=== PATIENT | female | born 1935 | race Caucasian/White ===

== ENCOUNTER 2016-03-07 13:22 | Emergency (ER) | payer OTHER, MEDICARE ==
[~2016-03-07] VITALS: Ht 154.9 cm; Wt 74.7 kg
[~2016-03-07 13:22] MED LIST: ACIPHEX20 MG PO; ADVAIR 100/501 DISK IH; ADVAIR 250/501 DISK IH; ADVAIR 500/501 DISK IH; ALEVE220 MG PO; ASCORBIC ACID500 M3 PO; ASPIR 8181 M1 PO; ASPIRIN E.C.81 M1 PO; Advair HFA 115/21 IH; BISOPROLOL FUMAR5 M1 NG; BISOPROLOL FUMAR5 MG PO; CARAFATE1 GM PO; CELEXA20 MG PO; COLACE100 MG PO; COUMADIN PO; CYANOCOBALAM1000 MCG PO; DILAUDID2 MG PO; DYAZIDE, MA1 CAPSULE PO; Dyazide, Maxzide 37. PO; FEOSOL325 MG PO; FISH OIL 1,0001 EAC8 PO; FISH OIL SOFTG1 EACH PO; Flovent 110 mcg IH; HYDROCODON-ACE1 EAC7 PO; HYDROMORPHONE HC2 MG PO; K-DUR10 ME1 PO; K-DUR10 MEQ PO; LATANOPROST2.5 ML BOTH EYES; LEVAQUIN500 MG PO; LEVOTHYROXINE88 MCG PO; LO-DOSE ASPIRIN81 M1 PO; Levothroid,Synthroid PO; MAXZIDE 37.5 M1 EACH PO; NASONEX17 GM BOTH NARES; NITROSTAT0.4 MG SL; OMEPRAZOLE40 M1 PO; OXYBUTYNIN CHLOR5 MG PO; PRAVACHOL40 MG PO; PRAVASTATIN SOD20 MG PO; PRAVASTATIN SOD40 MG PO; PREDNISONE50 MG PO; PRILOSEC40 MG PO; PROAIR HFA8.5 GM IH; PROVENTIL,2.5 MG/3 M IH; Prilosec PO; RANITIDINE HCL300 M1 PO; REQUIP1 MG PO; SENOKOT S,PE1 TABLET PO; SPIRIVA1 INHALATI IH; ST. JOSEPH ASPI81 MG PO; STOOL SOFTENER100 MG PO; SUCRALFATE1 GM PO; SYNTHROID100 MCG PO; TRAZODONE HCL50 MG PO; TRIAMTERENE-HC1 EAC1 PO; TRIAMTERENE-HC1 EACH PO; TUSSIONEX PENN473 ML PO; TYLENOL EXTRA500 MG PO; Tylenol Regular Stre PO; VITAMIN D1000 UNIT PO; VITAMIN D31000 UNIT PO; VITAMIN E400 UNIT PO; VOLTAREN 1% GE100 GM TP; Vicodin,Lortab 5/500 PO; ZEBETA5 MG PO; Zebeta PO
[2016-03-07 14:28] LABS: MCH 30.9 PG (29.0-34.0); MCHC 33.6 G/DL (30.0-36.0); MCV 92.1 FL (83-99); MEAN PLAT.VOLUME 10.6 uM^3 (9.5-12.4); PLATELET COUNT 171 K/uL (156-360); RBC DIS.WIDTH-CV 12.5 % (11.8-14.6); RBC DIS.WIDTH-SD 40.9 % (39-53); RED BLOOD COUNT 4.56 M/uL (3.80-5.20); WHITE BLOOD COUNT 10.2 K/uL (4.1-10.2)
[2016-03-07 14:36] LABS: CHLORIDE 104 mEq/L (99-109); POTASSIUM 3.8 mEq/L (3.7-5.4); SODIUM 141 mEq/L (136-147)
[2016-03-07 14:38] LABS: GLUCOSE 106 mg/dL (70-99)
[2016-03-07 14:39] LABS: ANION GAP 9 MEQ/L (2-14)
[2016-03-07 14:40] LABS: TOTAL BILIRUBIN 1.2 mg/dL (0.0-1.0)
[2016-03-07 14:42] LABS: ALKALINE PHOSPHATASE 62 IU/L (3-129); GFR ESTIMATE (CALCULATED) 51 mL/min/
[2016-03-07 14:43] LABS: UREA NITROGEN (BUN) 26 mg/dL (9-23)
[2016-03-07 14:45] LABS: LIPASE 9 U/L (1.0-51.0)
[2016-03-07 16:21] LABS: ADD MIUA? YES; BILIRUBIN NEGATIVE; BLOOD NEGATIVE; COLOR YELLOW ((YELLOW)); GLUCOSE (STRIP) NEGATIVE; KETONES NEGATIVE; LEUKOCYTES TRACE; NITRITE NEGATIVE; PROTEIN (STRIP) NEGATIVE; SPECIFIC GRAVITY 1.022 (1.000-1.030); UROBILINOGEN 0.2 MG/DL (0.2-1.0)
[2016-03-07 16:46] LABS: BACTERIA RARE; CASTS NONE SEEN /LPF; CRYSTALS PRESENT; EPITHELIAL CELLS RARE; MUCUS NONE SEEN; OTHER RENAL CELLS; RED BLOOD CELLS 0-5 /HPF (0-5); UCUL ADDED? NO; WHITE BLOOD CELLS 0-5 /HPF (0-5)
[2016-03-07 16:57] VITALS: BP 109/51
== END 2016-03-07 17:30 | disposition home or self-care (01) ==
LOC: EME 13:22
DX: R10.31 Right lower quadrant pain (principal); J43.9 Emphysema, unspecified; J44.9 Chronic obstructive pulmonary disease, unspecified; Z79.82 Long term (current) use of aspirin; Z88.6 Allergy status to analgesic agent; Z88.8 Allergy status to other drugs, medicaments and biological substances
CPT/HCPCS: 74177; 80053; 81003; 83690; 85027; 99281; 99285; J2405; J3010; J7030

== ENCOUNTER 2016-04-24 05:42 | Observation (INO) | payer OTHER, MEDICARE ==
[~2016-04-24] VITALS: Ht 154.9 cm; Wt 75.7 kg
[2016-04-24 06:14] LABS: POINT-OF-CARE METER ID UU14100415
[2016-04-24 07:02] LABS: HEMATOCRIT 37.6 % (36.0-46.0); MCH 30.3 PG (29.0-34.0); MCHC 32.7 G/DL (30.0-36.0); MCV 92.6 FL (83-99); MEAN PLAT.VOLUME 10.1 uM^3 (9.5-12.4); PLATELET COUNT 185 K/uL (156-360); RBC DIS.WIDTH-CV 12.4 % (11.8-14.6); RBC DIS.WIDTH-SD 40.9 % (39-53); RED BLOOD COUNT 4.06 M/uL (3.80-5.20); WHITE BLOOD COUNT 7.3 K/uL (4.1-10.2)
[2016-04-24 07:42] LABS: ANION GAP 9 MEQ/L (2-14); CHLORIDE 108 MEQ/L (99-109); POTASSIUM 3.8 MEQ/L (3.7-5.4); SAMPLE HEMOLYSIS CHECK 0; SAMPLE ICTERIC CHECK 0; SAMPLE LIPEMIA CHECK 0; SODIUM 145 MEQ/L (136-147)
[2016-04-24 07:48] LABS: GFR ESTIMATE (CALCULATED) 57 mL/min/; GLUCOSE 92 mg/dL (70-99); UREA NITROGEN (BUN) 20 mg/dL (9-23)
[2016-04-24 07:51] LABS: TROP-I INTERPRETATION NEGATIVE; TROPONIN-I 0.05 ng/mL (0.0-0.30)
[2016-04-24 08:47] LABS: ADD MIUA? NO; BILIRUBIN NEGATIVE; BLOOD NEGATIVE; COLOR YELLOW ((YELLOW)); GLUCOSE (STRIP) NEGATIVE; KETONES NEGATIVE; LEUKOCYTES NEGATIVE; NITRITE NEGATIVE; PROTEIN (STRIP) NEGATIVE; SPECIFIC GRAVITY 1.017 (1.000-1.030); UCUL ADDED? NO; UROBILINOGEN 0.2 MG/DL (0.2-1.0)
[2016-04-24] MEDS ORDERED: ESOMEPRAZOLE MA40 MG PO (09:13)
[2016-04-24] MEDS ORDERED: LATANOPROST2.5 ML BOTH EYES (09:16)
[2016-04-24] MEDS ORDERED: SUCRALFATE1 GM PO (09:16)
[2016-04-24 10:25] VITALS: BP 199/84
[2016-04-24 14:15] LABS: TROP-I INTERPRETATION NEGATIVE; TROPONIN-I 0.03 ng/mL (0.0-0.30)
[2016-04-24 14:37] LABS: Estimated Average Glucose 114 mg/dL (70-123); HEMOGLOBIN A1c (GLYCOHEMOGLOB) 5.6 % HGB (Below 5.7)
[2016-04-24 15:53] LABS: HDL CHOLESTEROL 54 MG/DL (Desirable>=50); LDL CHOLESTEROL 91 mg/dL (Desirable<100); NON-HDL CHOLESTEROL 109 mg/dL (Desirable<160); TOTAL CHOLESTEROL 163 mg/dL (Desirable<200); TRIGLYCERIDES 91 MG/DL (Normal: <150)
[2016-04-24 16:00] VITALS: BP 181/85
[2016-04-24 20:00] VITALS: BP 137/63
[2016-04-24 20:33] LABS: TROP-I INTERPRETATION NEGATIVE; TROPONIN-I 0.04 ng/mL (0.0-0.30)
[2016-04-25 00:30] VITALS: BP 171/79
[2016-04-25 08:43] VITALS: BP 163/74
[2016-04-25] MEDS ORDERED: ADVAIR 250/501 DISK IH (10:31)
[2016-04-25] MEDS ORDERED: PRAVASTATIN SOD80 MG PO (10:31)
== END 2016-04-25 11:52 | disposition home or self-care (01) ==
LOC: EME 05:42 → EDOF 08:56 → 5WEST 10:16
PROVIDERS: Internal Medicine; Physician Assistant Medical
DX: G45.9 Transient cerebral ischemic attack, unspecified (principal); R25.2 Cramp and spasm; R00.1 Bradycardia, unspecified; R42 Dizziness and giddiness; R47.81 Slurred speech; J44.9 Chronic obstructive pulmonary disease, unspecified; I10 Essential (primary) hypertension; G89.29 Other chronic pain; G43.909 Migraine, unspecified, not intractable, without status migrainosus; J45.909 Unspecified asthma, uncomplicated; K21.9 Gastro-esophageal reflux disease without esophagitis; F32.9 Major depressive disorder, single episode, unspecified; Z86.73 Personal history of transient ischemic attack (TIA), and cerebral infarction without residual deficits; E78.5 Hyperlipidemia, unspecified
CPT/HCPCS: 70450; 71020; 80048; 80061; 81003; 82948; 83036; 84443; 84484; 85027; 93005; 93306; 94640; 94640 76; 99281; 99285; G0378; J1650

== ENCOUNTER 2016-05-03 04:18 | Observation (INO) | payer OTHER, MEDICARE ==
[~2016-05-03] VITALS: Ht 154.9 cm; Wt 74.3 kg
[~2016-05-03 04:18] MED LIST changes: +ESOMEPRAZOLE MA40 MG PO; +PRAVASTATIN SOD80 MG PO
[2016-05-03 05:22] LABS: CHLORIDE 107 mEq/L (99-109)
[2016-05-03 05:23] LABS: POTASSIUM 4.3 mEq/L (3.7-5.4); SODIUM 143 mEq/L (136-147)
[2016-05-03 05:25] LABS: GLUCOSE 98 mg/dL (70-99)
[2016-05-03 05:26] LABS: ANION GAP 9 MEQ/L (2-14); EOSINOPHIL (%) 0.1 % (0-5); HEMATOCRIT 41.4 % (36.0-46.0); IMMATURE GRANULOCYTE (%) 0.2 % (0.0-0.7); IMMATURE GRANULOCYTE COUNT 0.2 K/uL; LYMPHOCYTE COUNT 1.9 K/uL (1.0-2.8); MCH 31.1 PG (29.0-34.0); MCHC 33.6 G/DL (30.0-36.0); MCV 92.6 FL (83-99); MONOCYTE (%) 9.2 % (3-12); MONOCYTE COUNT 0.8 K/uL (0-0.8); NEUTROPHIL (%) 69.4 % (45-76); NEUTROPHIL COUNT 6.2 K/uL (1.8-6.4); PLATELET COUNT 209 K/uL (156-360); RBC DIS.WIDTH-CV 12.4 % (11.8-14.6); RBC DIS.WIDTH-SD 41.2 % (39-53); RED BLOOD COUNT 4.47 M/uL (3.80-5.20)
[2016-05-03 05:27] LABS: TOTAL BILIRUBIN 0.6 mg/dL (0.0-1.0)
[2016-05-03 05:28] LABS: ALKALINE PHOSPHATASE 85 IU/L (3-129)
[2016-05-03 05:29] LABS: GFR ESTIMATE (CALCULATED) 51 mL/min/
[2016-05-03 05:30] LABS: DIRECT BILIRUBIN 0.2 mg/dL (0.0-0.3); PTT 25.4 (25-32); UREA NITROGEN (BUN) 25 mg/dL (9-23)
[2016-05-03 05:32] LABS: LIPASE 14 U/L (1.0-51.0); TROP-I INTERPRETATION NEGATIVE; TROPONIN-I 0.04 ng/mL (0.0-0.30)
[2016-05-03 05:48] LABS: ADD MIUA? NO; BILIRUBIN NEGATIVE; BLOOD NEGATIVE; COLOR STRAW ((YELLOW)); GLUCOSE (STRIP) NEGATIVE; KETONES NEGATIVE; LEUKOCYTES NEGATIVE; NITRITE NEGATIVE; PROTEIN (STRIP) NEGATIVE; SPECIFIC GRAVITY 1.012 (1.000-1.030); UCUL ADDED? NO; UROBILINOGEN 0.2 MG/DL (0.2-1.0)
[2016-05-03 06:01] LABS: HDL CHOLESTEROL 64 MG/DL (Desirable>=50); LDL CHOLESTEROL 91 mg/dL (Desirable<100); NON-HDL CHOLESTEROL 112 mg/dL (Desirable<160); TOTAL CHOLESTEROL 176 mg/dL (Desirable<200); TRIGLYCERIDES 105 MG/DL (Normal: <150)
[2016-05-03 09:33] VITALS: BP 173/71
[2016-05-03 11:06] LABS: Estimated Average Glucose 117 mg/dL (70-123); HEMOGLOBIN A1c (GLYCOHEMOGLOB) 5.7 % HGB (Below 5.7)
[2016-05-03 11:28] VITALS: BP 119/58
[2016-05-03 13:13] LABS: TROP-I INTERPRETATION NEGATIVE; TROPONIN-I 0.02 ng/mL (0.0-0.30)
[2016-05-03 15:45] VITALS: BP 165/70
[2016-05-03] MEDS ORDERED: ASPIR-LOW81 MG PO (15:45)
[2016-05-03] MEDS ORDERED: LISINOPRIL-HCT1 EACH PO (16:08)
== END 2016-05-03 16:27 | disposition home or self-care (01) ==
LOC: EME 04:18 → EDOF 07:36 → 5WEST 09:15
PROVIDERS: Emergency Medicine; Internal Medicine
DX: G45.9 Transient cerebral ischemic attack, unspecified (principal); I16.0 Hypertensive urgency; I10 Essential (primary) hypertension; Z86.73 Personal history of transient ischemic attack (TIA), and cerebral infarction without residual deficits; J44.9 Chronic obstructive pulmonary disease, unspecified; G43.909 Migraine, unspecified, not intractable, without status migrainosus; K21.9 Gastro-esophageal reflux disease without esophagitis; G89.29 Other chronic pain; Z86.718 Personal history of other venous thrombosis and embolism; F32.9 Major depressive disorder, single episode, unspecified; M19.90 Unspecified osteoarthritis, unspecified site
CPT/HCPCS: 70450; 70551; 71020; 80048; 80061; 80076; 81003; 83036; 83690; 84484; 85025; 85610; 85730; 93005; 99281; 99285; G0378; J1650; J2060

== ENCOUNTER 2016-09-19 11:40 | Inpatient (IN) | payer OTHER, MEDICARE ==
[~2016-09-19] VITALS: Ht 154.9 cm; Wt 73.9 kg
[~2016-09-19 11:40] MED LIST changes: +ASPIR-LOW81 MG PO; +LISINOPRIL-HCT1 EACH PO
[2016-09-19 12:20] LABS: POINT-OF-CARE METER ID UU14100415
[2016-09-19 13:25] LABS: INTER. NORMALIZED RATIO 0.9; PROTHROMBIN TIME 10.3 SEC (10.2-12.9)
[2016-09-19 13:27] LABS: PTT 29.7 SEC (25-37)
[2016-09-19 13:37] LABS: CHLORIDE 106 mEq/L (99-109); POTASSIUM 3.6 mEq/L (3.7-5.4); SODIUM 144 mEq/L (136-147)
[2016-09-19 13:39] LABS: GLUCOSE 129 mg/dL (70-99)
[2016-09-19 13:40] LABS: ANION GAP 12 MEQ/L (2-14); TROP-I INTERPRETATION INDETERMINATE; TROPONIN-I 0.49 ng/mL (0.0-0.30)
[2016-09-19 13:43] LABS: GFR ESTIMATE (CALCULATED) 56 mL/min/
[2016-09-19 13:44] LABS: UREA NITROGEN (BUN) 21 mg/dL (9-23)
[2016-09-19 14:57] LABS: EOSINOPHIL (%) 0.6 % (0-5); EOSINOPHIL COUNT 0.1 K/uL (0-0.3); HEMATOCRIT 37.9 % (36.0-46.0); IMMATURE GRANULOCYTE COUNT 0.1 K/uL; INSTRUMENT ABS NEUTROPHIL CT 11.1 K/uL; LYMPHOCYTE COUNT 0.9 K/uL (1.0-2.8); MCH 30.3 PG (29.0-34.0); MCHC 32.5 G/DL (30.0-36.0); MCV 93.3 FL (83-99); MEAN PLAT.VOLUME 10.3 uM^3 (9.5-12.4); MONOCYTE (%) 6.4 % (3-12); MONOCYTE COUNT 0.8 K/uL (0-0.8); NEUTROPHIL (%) 84.8 % (45-76); NEUTROPHIL COUNT 11.1 K/uL (1.8-6.4); PLATELET COUNT 173 K/uL (156-360); RBC DIS.WIDTH-CV 12.6 % (11.8-14.6); RBC DIS.WIDTH-SD 43.4 % (39-53); RED BLOOD COUNT 4.06 M/uL (3.80-5.20); WHITE BLOOD COUNT 13.1 K/uL (4.1-10.2)
[2016-09-19 16:24] LABS: ADD MIUA? YES; BILIRUBIN NEGATIVE; BLOOD NEGATIVE; COLOR YELLOW ((YELLOW)); GLUCOSE (STRIP) NEGATIVE; KETONES NEGATIVE; LEUKOCYTES NEGATIVE; NITRITE NEGATIVE; PROTEIN (STRIP) NEGATIVE; SPECIFIC GRAVITY 1.014 (1.000-1.030); UROBILINOGEN 0.2 MG/DL (0.2-1.0)
[2016-09-19 17:05] LABS: EPITHELIAL CELLS 1+ /HPF; RED BLOOD CELLS 0-5 /HPF (0-5); WHITE BLOOD CELLS 0-5 /HPF (0-5)
[2016-09-19 17:06] LABS: BACTERIA RARE /HPF; MUCUS NONE SEEN /LPF
[2016-09-19 18:03] VITALS: BP 131/74
[2016-09-19 18:48] LABS: INTER. NORMALIZED RATIO 0.9; PROTHROMBIN TIME 9.6 SEC (10.2-12.9)
[2016-09-19 18:50] LABS: ANION GAP 12 MEQ/L (2-14); CHLORIDE 105 MEQ/L (99-109); POTASSIUM 3.8 MEQ/L (3.7-5.4); SAMPLE HEMOLYSIS CHECK 0; SAMPLE ICTERIC CHECK 0; SAMPLE LIPEMIA CHECK 0; SODIUM 142 MEQ/L (136-147)
[2016-09-19 18:51] LABS: PTT 23.2 SEC (25-37)
[2016-09-19 18:54] LABS: EOSINOPHIL (%) 0.5 % (0-5); EOSINOPHIL COUNT 0.1 K/uL (0-0.3); HEMATOCRIT 40.8 % (36.0-46.0); IMMATURE GRANULOCYTE (%) 1.1 % (0.0-0.7); IMMATURE GRANULOCYTE COUNT 0.1 K/uL; INSTRUMENT ABS NEUTROPHIL CT 10.6 K/uL; LYMPHOCYTE COUNT 1.2 K/uL (1.0-2.8); MCH 30.1 PG (29.0-34.0); MCHC 31.9 G/DL (30.0-36.0); MCV 94.4 FL (83-99); MONOCYTE (%) 8.1 % (3-12); MONOCYTE COUNT 1.1 K/uL (0-0.8); NEUTROPHIL (%) 80.8 % (45-76); NEUTROPHIL COUNT 10.6 K/uL (1.8-6.4); RBC DIS.WIDTH-CV 12.5 % (11.8-14.6); RED BLOOD COUNT 4.32 M/uL (3.80-5.20); WHITE BLOOD COUNT 13.2 K/uL (4.1-10.2)
[2016-09-19 18:56] LABS: GFR ESTIMATE (CALCULATED) 56 mL/min/; GLUCOSE 104 mg/dL (70-99); HDL CHOLESTEROL 62 MG/DL (Desirable>=50); LDL CHOLESTEROL 116 mg/dL (Desirable<100); NON-HDL CHOLESTEROL 132 mg/dL (Desirable<160); TOTAL CHOLESTEROL 194 mg/dL (Desirable<200); TRIGLYCERIDES 81 MG/DL (Normal: <150); UREA NITROGEN (BUN) 18 mg/dL (9-23)
[2016-09-19 19:12] LABS: PLAT.SUFFICIENCY DECREASED
[2016-09-19 19:13] LABS: PLATELET COUNT 118 K/uL (156-360)
[2016-09-19 20:05] VITALS: BP 189/76
[2016-09-19 20:33] VITALS: BP 158/82
[2016-09-20] VITALS: BP 152/100
[2016-09-20 01:14] LABS: TROP-I INTERPRETATION INDETERMINATE
[2016-09-20 04:05] VITALS: BP 160/77
[2016-09-20 05:24] LABS: PROTHROMBIN TIME 11.1 SEC (10.2-12.9)
[2016-09-20 05:27] LABS: PTT 33.1 SEC (25-37)
[2016-09-20 05:40] LABS: TROP-I INTERPRETATION INDETERMINATE; TROPONIN-I 0.52 ng/mL (0.0-0.30)
[2016-09-20 05:58] LABS: HEMATOCRIT 36.3 % (36.0-46.0); MCH 31.5 PG (29.0-34.0); MCHC 33.6 G/DL (30.0-36.0); MCV 93.8 FL (83-99); RBC DIS.WIDTH-CV 12.7 % (11.8-14.6); RBC DIS.WIDTH-SD 43.6 % (39-53); RED BLOOD COUNT 3.87 M/uL (3.80-5.20); WHITE BLOOD COUNT 10.2 K/uL (4.1-10.2)
[2016-09-20 06:00] LABS: MEAN PLAT.VOLUME 10.9 uM^3 (9.5-12.4); PLATELET COUNT 178 K/uL (156-360)
[2016-09-20 06:14] LABS: ANION GAP 7 MEQ/L (2-14); CHLORIDE 107 MEQ/L (99-109); GFR ESTIMATE (CALCULATED) > 59 mL/min/; GLUCOSE 88 mg/dL (70-99); POTASSIUM 4.2 MEQ/L (3.7-5.4); SAMPLE HEMOLYSIS CHECK 1; SAMPLE ICTERIC CHECK 0; SAMPLE LIPEMIA CHECK 0; SODIUM 142 MEQ/L (136-147); UREA NITROGEN (BUN) 14 mg/dL (9-23)
[2016-09-20 07:44] VITALS: BP 192/78
[2016-09-20 11:16] VITALS: BP 152/66
[2016-09-20] MEDS ORDERED: PRAVASTATIN SOD20 MG PO (14:33)
[2016-09-20] MEDS ORDERED: REQUIP2 MG PO (14:35)
[2016-09-20] MEDS ORDERED: VITAMIN E1000 UNI1 PO (14:37)
[2016-09-20] MEDS ORDERED: ARICEPT5 MG PO (14:38)
[2016-09-20] MEDS ORDERED: COLACE100 MG PO (14:38)
[2016-09-20] MEDS ORDERED: MELOXICAM15 MG PO (14:38)
[2016-09-20 15:12] VITALS: BP 156/71
[2016-09-20 18:44] VITALS: BP 128/90
[2016-09-21 05:44] VITALS: BP 188/79
[2016-09-21 07:54] LABS: Estimated Average Glucose 117 mg/dL (70-123); HEMOGLOBIN A1c (GLYCOHEMOGLOB) 5.7 % HGB (Below 5.7)
[2016-09-21 09:00] VITALS: BP 176/77
[2016-09-21 11:00] VITALS: BP 159/79
[2016-09-21 17:36] VITALS: BP 162/74
[2016-09-21 20:00] VITALS: BP 171/77
[2016-09-21 23:41] VITALS: BP 152/63
[2016-09-22 04:21] VITALS: BP 154/81
[2016-09-22 07:26] LABS: ANION GAP 8 MEQ/L (2-14); CHLORIDE 109 MEQ/L (99-109); GFR ESTIMATE (CALCULATED) > 59 mL/min/; GLUCOSE 82 mg/dL (70-99); POTASSIUM 3.6 MEQ/L (3.7-5.4); SAMPLE HEMOLYSIS CHECK 0; SAMPLE ICTERIC CHECK 0; SAMPLE LIPEMIA CHECK 0; SODIUM 144 MEQ/L (136-147); UREA NITROGEN (BUN) 14 mg/dL (9-23)
[2016-09-22] MEDS ORDERED: CLOPIDOGREL75 MG PO (07:38)
[2016-09-22] MEDS ORDERED: PRAVACHOL40 MG PO (07:39)
[2016-09-22] MEDS ORDERED: LISINOPRIL10 MG PO (07:42)
[2016-09-22 08:32] VITALS: BP 169/75
[2016-09-22 11:20] VITALS: BP 153/88
[2016-09-22] MEDS ORDERED: NEURONTIN100 MG PO (14:37)
[2016-09-22] MEDS ORDERED: LOPRESSOR50 MG PO (14:38)
[2016-09-22] MEDS ORDERED: LOVENOX40 MG/0.4 SC (14:39)
== END 2016-09-22 13:02 | DRG 65 ==
LOC: EME 11:40 → EDOF 15:51 → 5SOUTH 17:34
PROVIDERS: Emergency Medicine; Internal Medicine; Nurse Practitioner Adult Health
DX: I63.511 Cerebral infarction due to unspecified occlusion or stenosis of right middle cerebral artery (principal); R47.81 Slurred speech; R13.10 Dysphagia, unspecified; I11.0 Hypertensive heart disease with heart failure; I50.30 Unspecified diastolic (congestive) heart failure; J44.9 Chronic obstructive pulmonary disease, unspecified; I69.354 Hemiplegia and hemiparesis following cerebral infarction affecting left non-dominant side; I16.0 Hypertensive urgency; R74.8 Abnormal levels of other serum enzymes; F03.90 Unspecified dementia, unspecified severity, without behavioral disturbance, psychotic disturbance, mood disturbance, and anxiety; E78.5 Hyperlipidemia, unspecified; G62.9 Polyneuropathy, unspecified; G25.81 Restless legs syndrome; K21.9 Gastro-esophageal reflux disease without esophagitis; Z79.82 Long term (current) use of aspirin; Z85.828 Personal history of other malignant neoplasm of skin; Z82.0 Family history of epilepsy and other diseases of the nervous system
CPT/HCPCS: 70450; 70551; 71010; 80048; 80048 91; 80061; 81003; 82948; 83036; 84439; 84443; 84484; 85025; 85025 91; 85027; 85610; 85730; 92526 GN; 92610 GN; 93005; 93880; 93970; 94640; 94640 76; 97530 GP; 99281; 99285; J0360; J1650; J2270; J7030

== ENCOUNTER 2016-09-22 13:12 | Inpatient (IN) | payer OTHER, MEDICARE ==
[~2016-09-22] VITALS: Ht 154.9 cm; Wt 73.6 kg
[~2016-09-22 13:12] MED LIST changes: +ARICEPT5 MG PO; +CLOPIDOGREL75 MG PO; +LISINOPRIL10 MG PO; +MELOXICAM15 MG PO; +REQUIP2 MG PO; +VITAMIN E1000 UNI1 PO
[2016-09-22 13:25] VITALS: BP 146/67
[2016-09-22] MEDS ORDERED: NEURONTIN100 MG PO (14:37)
[2016-09-22] MEDS ORDERED: LOPRESSOR50 MG PO (14:38)
[2016-09-22] MEDS ORDERED: LOVENOX40 MG/0.4 SC (14:39)
[2016-09-22 15:45] VITALS: BP 177/74
[2016-09-23] VITALS: BP 147/69
[2016-09-23 05:36] VITALS: BP 169/72
[2016-09-23 06:34] LABS: HEMATOCRIT 37.6 % (36.0-46.0); MCH 30.8 PG (29.0-34.0); MCV 93.5 FL (83-99); MEAN PLAT.VOLUME 10.1 uM^3 (9.5-12.4); PLATELET COUNT 178 K/uL (156-360); RBC DIS.WIDTH-CV 12.7 % (11.8-14.6); RBC DIS.WIDTH-SD 43.5 % (39-53); RED BLOOD COUNT 4.02 M/uL (3.80-5.20); WHITE BLOOD COUNT 6.4 K/uL (4.1-10.2)
[2016-09-23 06:59] LABS: ALKALINE PHOSPHATASE 60 IU/L (3-129); ANION GAP 6 MEQ/L (2-14); CHLORIDE 109 MEQ/L (99-109); GFR ESTIMATE (CALCULATED) > 59 mL/min/; GLUCOSE 85 mg/dL (70-99); SAMPLE HEMOLYSIS CHECK 0; SAMPLE ICTERIC CHECK 0; SAMPLE LIPEMIA CHECK 0; SODIUM 143 MEQ/L (136-147); TOTAL BILIRUBIN 0.6 MG/DL (0.0-1.0); UREA NITROGEN (BUN) 13 mg/dL (9-23)
[2016-09-23 14:59] VITALS: BP 149/66
[2016-09-24 05:23] VITALS: BP 148/62
[2016-09-24 15:51] VITALS: BP 145/67
[2016-09-25 04:56] VITALS: BP 175/61
[2016-09-25 06:17] VITALS: BP 162/75
[2016-09-25 09:19] LABS: ADD MIUA? YES; BILIRUBIN NEGATIVE; BLOOD NEGATIVE; COLOR YELLOW ((YELLOW)); GLUCOSE (STRIP) NEGATIVE; KETONES NEGATIVE; LEUKOCYTES NEGATIVE; NITRITE NEGATIVE; PROTEIN (STRIP) NEGATIVE; SPECIFIC GRAVITY 1.013 (1.000-1.030); UROBILINOGEN 0.2 MG/DL (0.2-1.0)
[2016-09-25 09:58] LABS: BACTERIA NONE SEEN /HPF; EPITHELIAL CELLS RARE /HPF; MUCUS NONE SEEN /LPF; RED BLOOD CELLS NONE SEEN /HPF (0-5); WHITE BLOOD CELLS NONE SEEN /HPF (0-5)
[2016-09-25 16:17] VITALS: BP 149/67
[2016-09-26 04:44] VITALS: BP 132/60
[2016-09-26 07:15] VITALS: BP 154/70
[2016-09-26 15:32] VITALS: BP 121/62
[2016-09-27 05:14] VITALS: BP 133/65
[2016-09-27 06:00] LABS: HEMATOCRIT 39.3 % (36.0-46.0); MCH 31.7 PG (29.0-34.0); MCHC 33.8 G/DL (30.0-36.0); MCV 93.8 FL (83-99); MEAN PLAT.VOLUME 10.5 uM^3 (9.5-12.4); PLATELET COUNT 186 K/uL (156-360); RBC DIS.WIDTH-CV 12.9 % (11.8-14.6); RBC DIS.WIDTH-SD 43.9 % (39-53); RED BLOOD COUNT 4.19 M/uL (3.80-5.20); WHITE BLOOD COUNT 7.7 K/uL (4.1-10.2)
[2016-09-27 06:37] LABS: ALKALINE PHOSPHATASE 66 IU/L (3-129); ANION GAP 10 MEQ/L (2-14); CHLORIDE 102 MEQ/L (99-109); GFR ESTIMATE (CALCULATED) 56 mL/min/; GLUCOSE 88 mg/dL (70-99); POTASSIUM 3.5 MEQ/L (3.7-5.4); SAMPLE HEMOLYSIS CHECK 0; SAMPLE ICTERIC CHECK 0; SAMPLE LIPEMIA CHECK 0; SODIUM 139 MEQ/L (136-147); TOTAL BILIRUBIN 0.7 MG/DL (0.0-1.0); UREA NITROGEN (BUN) 20 mg/dL (9-23)
[2016-09-27 15:26] VITALS: BP 112/52
[2016-09-28 06:19] VITALS: BP 133/56
[2016-09-28] MEDS ORDERED: LOPRESSOR50 MG PO (12:44)
[2016-09-28] MEDS ORDERED: LISINOPRIL10 MG PO (12:44)
[2016-09-28] MEDS ORDERED: PRAVACHOL40 MG PO (12:44)
[2016-09-28] MEDS ORDERED: CLOPIDOGREL75 MG PO (12:44)
[2016-09-28] MEDS ORDERED: MONTELUKAST SOD10 MG PO (12:44)
== END 2016-09-28 14:56 | disposition home health service (06) | DRG 57 ==
LOC: 3WEST 13:12
PROVIDERS: Physical Medicine & Rehabilitation Pain Medicine
PROC: F07M0ZZ Range of Motion and Joint Mobility Treatment of Musculoskeletal System - Whole Body (ICD-10-PCS; principal; 2016-09-22)
DX: I69.354 Hemiplegia and hemiparesis following cerebral infarction affecting left non-dominant side (principal); I69.391 Dysphagia following cerebral infarction; E03.9 Hypothyroidism, unspecified; K21.9 Gastro-esophageal reflux disease without esophagitis; K44.9 Diaphragmatic hernia without obstruction or gangrene; M19.90 Unspecified osteoarthritis, unspecified site; E78.5 Hyperlipidemia, unspecified; G25.81 Restless legs syndrome; J45.30 Mild persistent asthma, uncomplicated; E87.6 Hypokalemia; F03.90 Unspecified dementia, unspecified severity, without behavioral disturbance, psychotic disturbance, mood disturbance, and anxiety; H40.9 Unspecified glaucoma; I11.9 Hypertensive heart disease without heart failure; R29.810 Facial weakness; I36.1 Nonrheumatic tricuspid (valve) insufficiency; I27.2 Other secondary pulmonary hypertension; I34.0 Nonrheumatic mitral (valve) insufficiency; M25.511 Pain in right shoulder; I65.23 Occlusion and stenosis of bilateral carotid arteries; Z82.3 Family history of stroke
CPT/HCPCS: 71010; 74230; 80053; 81003; 85027; 87086; 92523 GN; 92526 GN; 92610 GN; 92611 GN; 94640 76; 97532 GN; J1650

== ENCOUNTER 2016-10-04 14:30 | Emergency (ER) | payer OTHER, MEDICARE ==
[~2016-10-04] VITALS: Ht 154.9 cm; Wt 70.4 kg
[~2016-10-04 14:30] MED LIST changes: +LOPRESSOR50 MG PO; +LOVENOX40 MG/0.4 SC; +MONTELUKAST SOD10 MG PO; +NEURONTIN100 MG PO
[2016-10-04 16:10] LABS: HEMATOCRIT 40.6 % (36.0-46.0); MCH 30.9 PG (29.0-34.0); MCV 93.8 FL (83-99); MEAN PLAT.VOLUME 10.7 uM^3 (9.5-12.4); PLATELET COUNT 207 K/uL (156-360); RBC DIS.WIDTH-CV 12.4 % (11.8-14.6); RBC DIS.WIDTH-SD 42.7 % (39-53); RED BLOOD COUNT 4.33 M/uL (3.80-5.20); WHITE BLOOD COUNT 6.8 K/uL (4.1-10.2)
[2016-10-04 16:15] LABS: INTER. NORMALIZED RATIO 0.9; PROTHROMBIN TIME 9.9 SEC (10.2-12.9)
[2016-10-04 16:17] LABS: PTT 23.5 SEC (25-37)
[2016-10-04 16:17] LABS: CHLORIDE 101 mEq/L (99-109); POTASSIUM 4.8 mEq/L (3.7-5.4); SODIUM 138 mEq/L (136-147)
[2016-10-04 16:20] LABS: GLUCOSE 96 mg/dL (70-99)
[2016-10-04 16:21] LABS: ANION GAP 10 MEQ/L (2-14)
[2016-10-04 16:22] LABS: TOTAL BILIRUBIN 0.6 mg/dL (0.0-1.0)
[2016-10-04 16:23] LABS: ALKALINE PHOSPHATASE 76 IU/L (3-129); GFR ESTIMATE (CALCULATED) 51 mL/min/
[2016-10-04 16:24] LABS: UREA NITROGEN (BUN) 26 mg/dL (9-23)
[2016-10-04 19:29] VITALS: BP 138/78
== END 2016-10-04 19:30 | disposition home or self-care (01) ==
LOC: EME 14:30
PROVIDERS: Emergency Medicine
DX: R06.00 Dyspnea, unspecified (principal); J44.9 Chronic obstructive pulmonary disease, unspecified; I10 Essential (primary) hypertension; K21.9 Gastro-esophageal reflux disease without esophagitis; Z86.73 Personal history of transient ischemic attack (TIA), and cerebral infarction without residual deficits
CPT/HCPCS: 71020; 71275; 80053; 85027; 85610; 85730; 93005; 99281; 99284; J7030

== ENCOUNTER 2016-11-08 09:34 | Inpatient (IN) | payer OTHER, MEDICARE ==
[~2016-11-08] VITALS: Ht 154.9 cm; Wt 69.5 kg
[~2016-11-08 09:34] MED LIST changes: +LEVOTHYROXINE100 MCG PO; -LEVOTHYROXINE88 MCG PO; -VITAMIN E1000 UNI1 PO
[2016-11-08 13:00] LABS: HEMATOCRIT 37.8 % (36.0-46.0); MCH 31.3 PG (29.0-34.0); MCHC 33.3 G/DL (30.0-36.0); MEAN PLAT.VOLUME 9.9 uM^3 (9.5-12.4); PLATELET COUNT 187 K/uL (156-360); RBC DIS.WIDTH-CV 12.1 % (11.8-14.6); RBC DIS.WIDTH-SD 42.1 % (39-53); RED BLOOD COUNT 4.02 M/uL (3.80-5.20); WHITE BLOOD COUNT 6.9 K/uL (4.1-10.2)
[2016-11-08 13:10] LABS: CHLORIDE 106 mEq/L (99-109); POTASSIUM 4.4 mEq/L (3.7-5.4); SODIUM 142 mEq/L (136-147)
[2016-11-08 13:12] LABS: GLUCOSE 94 mg/dL (70-99)
[2016-11-08 13:13] LABS: ANION GAP 7 MEQ/L (2-14)
[2016-11-08 13:15] LABS: SERUM ETHYL ALCOHOL < 10 mg/dL
[2016-11-08 13:16] LABS: GFR ESTIMATE (CALCULATED) > 59 mL/min/
[2016-11-08 13:17] LABS: UREA NITROGEN (BUN) 16 mg/dL (9-23)
[2016-11-08] MEDS ORDERED: LO-DOSE ASPIRIN81 M1 PO (13:22)
[2016-11-08] MEDS ORDERED: CYMBALTA20 MG PO (13:23)
[2016-11-08] MEDS ORDERED: SLOW-MAG,MAG DE64 MG PO (13:23)
[2016-11-08] MEDS ORDERED: VITAMIN B-12500 MC5 SL ×2 (13:24→13:27)
[2016-11-08] MEDS ORDERED: SYMBICORT60 INHALAT IH (13:28)
[2016-11-08 14:05] LABS: ADD MEDTOX COMMENT Y; AMPHETAMINE NEGATIVE (500 ng/mL); BARBITURATES NEGATIVE (200 ng/mL); BENZODIAZEPINES NEGATIVE (150 ng/mL); COCAINE NEGATIVE (150 ng/mL); INTERNAL CONTROLS VALID? YES; METHADONE NEGATIVE (200 ng/mL); METHAMPHETAMINE NEGATIVE (500 ng/mL); OPIATES (MORPHINE) PRESUMPTIVE POSITIVE (100 ng/mL); OXYCODONE PRESUMPTIVE POSITIVE (100 ng/mL); PHENCYCLIDINE NEGATIVE (25 ng/mL); PROPOXYPHENE NEGATIVE (300 ng/mL); THC CANNABINOIDS NEGATIVE (50 ng/mL); TRICYCLIC ANTIDEPRESSANTS NEGATIVE (300 ng/mL)
[2016-11-08 15:15] LABS: ADD MIUA? YES; BILIRUBIN NEGATIVE; BLOOD NEGATIVE; COLOR YELLOW ((YELLOW)); GLUCOSE (STRIP) NEGATIVE; KETONES NEGATIVE; LEUKOCYTES TRACE; NITRITE NEGATIVE; PROTEIN (STRIP) NEGATIVE; SPECIFIC GRAVITY 1.018 (1.000-1.030); UROBILINOGEN 0.2 MG/DL (0.2-1.0)
[2016-11-08 15:28] LABS: BACTERIA NONE SEEN /HPF; EPITHELIAL CELLS NONE SEEN /HPF; MUCUS TRACE /LPF; RED BLOOD CELLS 0-5 /HPF (0-5); UCUL ADDED? NO; WHITE BLOOD CELLS 0-5 /HPF (0-5)
[2016-11-09 12:01] VITALS: BP 121/56
[2016-11-09 12:29] VITALS: BP 121/56
[2016-11-09 15:42] VITALS: BP 148/73
[2016-11-10 07:23] VITALS: BP 125/73
== END 2016-11-10 12:36 | disposition home or self-care (01) | DRG 881 ==
LOC: EME 09:34 → 1WEST 11-09 10:38 → EDOF 11-09 10:38 → ENRESERV 11-09 11:42 → 1WEST 11-09 11:52
PROVIDERS: Emergency Medicine
DX: F43.21 Adjustment disorder with depressed mood (principal); F01.50 Vascular dementia, unspecified severity, without behavioral disturbance, psychotic disturbance, mood disturbance, and anxiety; I10 Essential (primary) hypertension; K21.9 Gastro-esophageal reflux disease without esophagitis; E03.9 Hypothyroidism, unspecified; R45.851 Suicidal ideations; Z86.73 Personal history of transient ischemic attack (TIA), and cerebral infarction without residual deficits; J44.9 Chronic obstructive pulmonary disease, unspecified; Z88.6 Allergy status to analgesic agent; Z88.8 Allergy status to other drugs, medicaments and biological substances
CPT/HCPCS: 73030; 73502; 80048; 81003; 84999; 85027; 90839; 94640; 94640 76; 99202; 99281; 99285; G0480

== ENCOUNTER 2016-11-29 16:31 | Emergency (ER) | payer OTHER, MEDICARE ==
[~2016-11-29] VITALS: Ht 154.9 cm; Wt 68.1 kg
[~2016-11-29 16:31] MED LIST changes: +CYMBALTA20 MG PO; +SLOW-MAG,MAG DE64 MG PO; +SYMBICORT60 INHALAT IH; +VITAMIN B-12500 MC5 SL
[2016-11-29 17:07] LABS: EOSINOPHIL (%) 0.2 % (0-5); HEMATOCRIT 39.4 % (36.0-46.0); IMMATURE GRANULOCYTE (%) 0.7 % (0.0-0.7); IMMATURE GRANULOCYTE COUNT 0.1 K/uL; INSTRUMENT ABS NEUTROPHIL CT 6.9 K/uL; MCHC 32.5 G/DL (30.0-36.0); MCV 95.4 FL (83-99); MEAN PLAT.VOLUME 10.2 uM^3 (9.5-12.4); MONOCYTE (%) 8.5 % (3-12); MONOCYTE COUNT 0.7 K/uL (0-0.8); NEUTROPHIL (%) 78.6 % (45-76); NEUTROPHIL COUNT 6.9 K/uL (1.8-6.4); PLATELET COUNT 182 K/uL (156-360); RBC DIS.WIDTH-CV 12.5 % (11.8-14.6); RBC DIS.WIDTH-SD 43.9 % (39-53); RED BLOOD COUNT 4.13 M/uL (3.80-5.20); WHITE BLOOD COUNT 8.7 K/uL (4.1-10.2)
[2016-11-29 17:21] LABS: CHLORIDE 110 mEq/L (99-109); POTASSIUM 3.6 mEq/L (3.7-5.4); SODIUM 146 mEq/L (136-147)
[2016-11-29 17:23] LABS: GLUCOSE 107 mg/dL (70-99)
[2016-11-29 17:25] LABS: ANION GAP 11 MEQ/L (2-14); TOTAL BILIRUBIN 0.7 mg/dL (0.0-1.0)
[2016-11-29 17:27] LABS: ALKALINE PHOSPHATASE 92 IU/L (3-129); GFR ESTIMATE (CALCULATED) > 59 mL/min/
[2016-11-29 17:28] LABS: UREA NITROGEN (BUN) 19 mg/dL (9-23)
[2016-11-29 18:42] LABS: ADD MIUA? YES; BILIRUBIN NEGATIVE; BLOOD NEGATIVE; COLOR AMBER ((YELLOW)); GLUCOSE (STRIP) NEGATIVE; KETONES NEGATIVE; LEUKOCYTES TRACE; NITRITE NEGATIVE; PROTEIN (STRIP) NEGATIVE; SPECIFIC GRAVITY 1.027 (1.000-1.030); UROBILINOGEN 0.2 MG/DL (0.2-1.0)
[2016-11-29 18:46] LABS: BACTERIA RARE /HPF; EPITHELIAL CELLS 1+ /HPF; MUCUS TRACE /LPF; UCUL ADDED? NO; WHITE BLOOD CELLS 0-5 /HPF (0-5)
[2016-11-29] MEDS ORDERED: BENTYL20 MG PO (20:04)
[2016-11-29 20:49] VITALS: BP 112/64
== END 2016-11-29 21:12 | disposition home or self-care (01) ==
LOC: EME 16:31
PROVIDERS: Emergency Medicine
DX: R53.1 Weakness (principal); R19.7 Diarrhea, unspecified; E87.6 Hypokalemia; Z86.73 Personal history of transient ischemic attack (TIA), and cerebral infarction without residual deficits; Z79.02 Long term (current) use of antithrombotics/antiplatelets; I10 Essential (primary) hypertension; J44.9 Chronic obstructive pulmonary disease, unspecified; K21.9 Gastro-esophageal reflux disease without esophagitis; Z85.828 Personal history of other malignant neoplasm of skin; Z96.659 Presence of unspecified artificial knee joint; Z79.82 Long term (current) use of aspirin
CPT/HCPCS: 80053; 81003; 85025; 87493; 93005; 99281; 99285; J7030

== ENCOUNTER 2016-12-11 08:06 | Emergency (ER) | payer OTHER, MEDICARE ==
[~2016-12-11] VITALS: Ht 154.9 cm; Wt 70.0 kg
[~2016-12-11 08:06] MED LIST changes: +BENTYL20 MG PO
[2016-12-11 08:42] LABS: EOSINOPHIL (%) 1.6 % (0-5); EOSINOPHIL COUNT 0.1 K/uL (0-0.3); HEMATOCRIT 35.3 % (36.0-46.0); IMMATURE GRANULOCYTE (%) 0.3 % (0.0-0.7); INSTRUMENT ABS NEUTROPHIL CT 5.3 K/uL; LYMPHOCYTE COUNT 1.1 K/uL (1.0-2.8); MCH 31.2 PG (29.0-34.0); MCHC 32.6 G/DL (30.0-36.0); MCV 95.7 FL (83-99); MEAN PLAT.VOLUME 10.4 uM^3 (9.5-12.4); MONOCYTE (%) 9.6 % (3-12); MONOCYTE COUNT 0.7 K/uL (0-0.8); NEUTROPHIL (%) 72.8 % (45-76); NEUTROPHIL COUNT 5.3 K/uL (1.8-6.4); PLATELET COUNT 168 K/uL (156-360); RBC DIS.WIDTH-CV 12.4 % (11.8-14.6); RBC DIS.WIDTH-SD 43.7 % (39-53); RED BLOOD COUNT 3.69 M/uL (3.80-5.20); WHITE BLOOD COUNT 7.3 K/uL (4.1-10.2)
[2016-12-11 08:53] LABS: CHLORIDE 108 mEq/L (99-109); POTASSIUM 3.7 mEq/L (3.7-5.4); SODIUM 143 mEq/L (136-147)
[2016-12-11 08:56] LABS: GLUCOSE 87 mg/dL (70-99)
[2016-12-11 08:57] LABS: ANION GAP 7 MEQ/L (2-14)
[2016-12-11 08:58] LABS: TOTAL BILIRUBIN 0.5 mg/dL (0.0-1.0)
[2016-12-11 08:59] LABS: ALKALINE PHOSPHATASE 58 IU/L (3-129); GFR ESTIMATE (CALCULATED) > 59 mL/min/
[2016-12-11 09:00] LABS: UREA NITROGEN (BUN) 13 mg/dL (9-23)
[2016-12-11 11:27] LABS: ADD MIUA? NO; BILIRUBIN NEGATIVE; BLOOD NEGATIVE; COLOR YELLOW ((YELLOW)); GLUCOSE (STRIP) NEGATIVE; KETONES NEGATIVE; LEUKOCYTES NEGATIVE; NITRITE NEGATIVE; PROTEIN (STRIP) NEGATIVE; SPECIFIC GRAVITY 1.016 (1.000-1.030); UCUL ADDED? NO; UROBILINOGEN 0.2 MG/DL (0.2-1.0)
[2016-12-11] MEDS ORDERED: FLAGYL500 MG PO (11:56)
[2016-12-11] MEDS ORDERED: CIPRO500 MG PO (11:56)
[2016-12-11 12:37] VITALS: BP 138/69
== END 2016-12-11 12:42 | disposition home or self-care (01) ==
LOC: EME 08:06
PROVIDERS: Physician Assistant
DX: K52.9 Noninfective gastroenteritis and colitis, unspecified (principal); K21.9 Gastro-esophageal reflux disease without esophagitis; J44.9 Chronic obstructive pulmonary disease, unspecified; I10 Essential (primary) hypertension; E03.9 Hypothyroidism, unspecified; Z85.820 Personal history of malignant melanoma of skin; Z86.73 Personal history of transient ischemic attack (TIA), and cerebral infarction without residual deficits; Z90.49 Acquired absence of other specified parts of digestive tract; Z79.82 Long term (current) use of aspirin; Z88.8 Allergy status to other drugs, medicaments and biological substances
CPT/HCPCS: 74177; 80053; 81003; 85025; 87493; 87506; 99281; 99285; J2270; J7120

== ENCOUNTER 2017-01-11 09:26 | Emergency (ER) | payer OTHER, MEDICARE ==
[~2017-01-11] VITALS: Ht 154.9 cm; Wt 67.0 kg
[~2017-01-11 09:26] MED LIST changes: +CIPRO500 MG PO; +FLAGYL500 MG PO
[2017-01-11 10:29] LABS: HEMATOCRIT 41.4 % (36.0-46.0); MCH 30.9 PG (29.0-34.0); MCHC 32.9 G/DL (30.0-36.0); MCV 94.1 FL (83-99); MEAN PLAT.VOLUME 11.1 uM^3 (9.5-12.4); PLATELET COUNT 202 K/uL (156-360); RBC DIS.WIDTH-CV 12.1 % (11.8-14.6); RBC DIS.WIDTH-SD 42.1 % (39-53); WHITE BLOOD COUNT 7.7 K/uL (4.1-10.2)
[2017-01-11 10:40] LABS: CHLORIDE 106 mEq/L (99-109); POTASSIUM 3.7 mEq/L (3.7-5.4); SODIUM 142 mEq/L (136-147)
[2017-01-11 10:41] LABS: MAGNESIUM 1.9 mg/dL (1.3-2.7)
[2017-01-11 10:43] LABS: GLUCOSE 98 mg/dL (70-99)
[2017-01-11 10:44] LABS: ANION GAP 6 MEQ/L (2-14); TOTAL BILIRUBIN 0.6 mg/dL (0.0-1.0)
[2017-01-11 10:46] LABS: ALKALINE PHOSPHATASE 62 IU/L (3-129); GFR ESTIMATE (CALCULATED) > 59 mL/min/
[2017-01-11 10:47] LABS: UREA NITROGEN (BUN) 13 mg/dL (9-23)
[2017-01-11 10:48] LABS: DIRECT BILIRUBIN 0.2 mg/dL (0.0-0.3)
[2017-01-11 12:16] LABS: ADD MIUA? YES; BILIRUBIN NEGATIVE; BLOOD NEGATIVE; COLOR YELLOW ((YELLOW)); GLUCOSE (STRIP) NEGATIVE; KETONES NEGATIVE; LEUKOCYTES TRACE; NITRITE NEGATIVE; PROTEIN (STRIP) NEGATIVE; UROBILINOGEN 0.2 MG/DL (0.2-1.0)
[2017-01-11 12:33] LABS: BACTERIA RARE /HPF; EPITHELIAL CELLS RARE /HPF; MUCUS TRACE /LPF; RED BLOOD CELLS 0-5 /HPF (0-5); UCUL ADDED? NO; WHITE BLOOD CELLS 0-5 /HPF (0-5)
[2017-01-11 13:32] VITALS: BP 188/76
== END 2017-01-11 13:32 | disposition home or self-care (01) ==
LOC: EME 09:26
PROVIDERS: Emergency Medicine
PROC: 3E0234Z Introduction of Serum, Toxoid and Vaccine into Muscle, Percutaneous Approach (ICD-10-PCS; principal; 2017-01-11)
DX: R53.1 Weakness (principal); S41.112A Laceration without foreign body of left upper arm, initial encounter; W18.40XA Slipping, tripping and stumbling without falling, unspecified, initial encounter; W22.09XA Striking against other stationary object, initial encounter; Y92.002 Bathroom of unspecified non-institutional (private) residence as the place of occurrence of the external cause; Z23 Encounter for immunization; K21.9 Gastro-esophageal reflux disease without esophagitis; I10 Essential (primary) hypertension; J44.9 Chronic obstructive pulmonary disease, unspecified; E03.9 Hypothyroidism, unspecified; Z85.828 Personal history of other malignant neoplasm of skin; Z86.73 Personal history of transient ischemic attack (TIA), and cerebral infarction without residual deficits; Z96.659 Presence of unspecified artificial knee joint; Z79.82 Long term (current) use of aspirin; Z88.8 Allergy status to other drugs, medicaments and biological substances
CPT/HCPCS: 80048; 80076; 81003; 83735; 85027; 99281; 99284

== ENCOUNTER 2017-01-18 05:28 | Inpatient (IN) | payer OTHER, MEDICARE ==
[~2017-01-18] VITALS: Ht 154.9 cm; Wt 63.7 kg
[~2017-01-18 05:28] MED LIST changes: +ASPIRIN EC325 MG PO; -CYMBALTA20 MG PO; +CYMBALTA60 MG PO
[2017-01-18 06:24] LABS: HEMATOCRIT 38.6 % (36.0-46.0); MCH 31.2 PG (29.0-34.0); MCHC 33.2 G/DL (30.0-36.0); MCV 94.1 FL (83-99); MEAN PLAT.VOLUME 10.9 uM^3 (9.5-12.4); PLATELET COUNT 175 K/uL (156-360); RBC DIS.WIDTH-CV 12.4 % (11.8-14.6); RBC DIS.WIDTH-SD 42.9 % (39-53)
[2017-01-18 06:27] LABS: CHLORIDE 109 mEq/L (99-109); POTASSIUM 3.4 mEq/L (3.7-5.4); SODIUM 142 mEq/L (136-147)
[2017-01-18 06:29] LABS: GLUCOSE 107 mg/dL (70-99)
[2017-01-18 06:30] LABS: ANION GAP 9 MEQ/L (2-14)
[2017-01-18 06:33] LABS: GFR ESTIMATE (CALCULATED) > 59 mL/min/
[2017-01-18 06:34] LABS: UREA NITROGEN (BUN) 15 mg/dL (9-23)
[2017-01-18 07:40] LABS: ALKALINE PHOSPHATASE 66 IU/L (3-129)
[2017-01-18 07:42] LABS: DIRECT BILIRUBIN 0.3 mg/dL (0.0-0.3); TOTAL BILIRUBIN 0.8 mg/dL (0.0-1.0)
[2017-01-18 07:57] LABS: ADD MIUA? NO; BILIRUBIN NEGATIVE; BLOOD NEGATIVE; COLOR YELLOW ((YELLOW)); GLUCOSE (STRIP) NEGATIVE; KETONES 20; LEUKOCYTES NEGATIVE; NITRITE NEGATIVE; PROTEIN (STRIP) NEGATIVE; SPECIFIC GRAVITY 1.019 (1.000-1.030); UCUL ADDED? NO; UROBILINOGEN 0.2 MG/DL (0.2-1.0)
[2017-01-18] MEDS ORDERED: BENTYL20 MG PO (09:47)
[2017-01-18] MEDS ORDERED: BUPROPION XL300 MG PO (09:48)
[2017-01-18] MEDS ORDERED: ARIPIPRAZOLE5 MG PO (09:48)
[2017-01-18] MEDS ORDERED: METOCLOPRAMIDE10 MG PO (09:48)
[2017-01-18] MEDS ORDERED: ONE DAILY WOME1 EAC1 PO (09:49)
[2017-01-18 10:46] VITALS: BP 182/90
[2017-01-18 12:56] LABS: TROP-I INTERPRETATION NEGATIVE; TROPONIN-I 0.02 ng/mL (0.0-0.30)
[2017-01-18 13:19] VITALS: BP 152/80
[2017-01-18 16:22] VITALS: BP 182/80
[2017-01-18 17:09] VITALS: BP 162/80
[2017-01-18 18:01] LABS: TROP-I INTERPRETATION NEGATIVE; TROPONIN-I 0.04 ng/mL (0.0-0.30)
[2017-01-18 19:48] VITALS: BP 178/78
[2017-01-19 01:40] VITALS: BP 158/80
[2017-01-19 05:39] VITALS: BP 162/84
[2017-01-19 06:03] LABS: HEMATOCRIT 38.8 % (36.0-46.0); MCH 31.3 PG (29.0-34.0); MCHC 32.2 G/DL (30.0-36.0); MCV 97.2 FL (83-99); MEAN PLAT.VOLUME 11.1 uM^3 (9.5-12.4); PLATELET COUNT 144 K/uL (156-360); RBC DIS.WIDTH-CV 12.5 % (11.8-14.6); RBC DIS.WIDTH-SD 44.8 % (39-53); RED BLOOD COUNT 3.99 M/uL (3.80-5.20); WHITE BLOOD COUNT 21.5 K/uL (4.1-10.2)
[2017-01-19 06:28] LABS: ANION GAP 9 MEQ/L (2-14); CHLORIDE 107 MEQ/L (99-109); GFR ESTIMATE (CALCULATED) > 59 mL/min/; GLUCOSE 128 mg/dL (70-99); SAMPLE HEMOLYSIS CHECK 0; SAMPLE ICTERIC CHECK 0; SAMPLE LIPEMIA CHECK 0; SODIUM 141 MEQ/L (136-147); UREA NITROGEN (BUN) 12 mg/dL (9-23)
[2017-01-19 06:33] LABS: POTASSIUM 4.2 MEQ/L (3.7-5.4)
[2017-01-19 08:17] VITALS: BP 142/72
[2017-01-19 09:32] LABS: PROTHROMBIN TIME 11.2 SEC (10.2-12.9)
[2017-01-19 15:58] VITALS: BP 123/62
[2017-01-19 19:41] VITALS: BP 140/66
[2017-01-19 23:34] VITALS: BP 137/63
[2017-01-20 06:19] LABS: HEMATOCRIT 31.9 % (36.0-46.0); MCH 31.4 PG (29.0-34.0); MCHC 31.7 G/DL (30.0-36.0); MCV 99.1 FL (83-99); MEAN PLAT.VOLUME 11.8 uM^3 (9.5-12.4); PLATELET COUNT 110 K/uL (156-360); RBC DIS.WIDTH-CV 12.6 % (11.8-14.6); RBC DIS.WIDTH-SD 45.6 % (39-53); RED BLOOD COUNT 3.22 M/uL (3.80-5.20); WHITE BLOOD COUNT 11.5 K/uL (4.1-10.2)
[2017-01-20 06:40] LABS: ANION GAP 7 MEQ/L (2-14); CHLORIDE 111 MEQ/L (99-109); GFR ESTIMATE (CALCULATED) > 59 mL/min/; GLUCOSE 97 mg/dL (70-99); POTASSIUM 3.9 MEQ/L (3.7-5.4); SAMPLE HEMOLYSIS CHECK 0; SAMPLE ICTERIC CHECK 0; SAMPLE LIPEMIA CHECK 0; SODIUM 143 MEQ/L (136-147); UREA NITROGEN (BUN) 17 mg/dL (9-23)
[2017-01-20 08:05] VITALS: BP 133/60
[2017-01-20 15:48] VITALS: BP 135/60
[2017-01-21 00:25] VITALS: BP 149/64
[2017-01-21 06:09] LABS: EOSINOPHIL (%) 1.6 % (0-5); EOSINOPHIL COUNT 0.2 K/uL (0-0.3); HEMATOCRIT 30.6 % (36.0-46.0); IMMATURE GRANULOCYTE (%) 0.8 % (0.0-0.7); IMMATURE GRANULOCYTE COUNT 0.1 K/uL; INSTRUMENT ABS NEUTROPHIL CT 9.8 K/uL; LYMPHOCYTE COUNT 0.8 K/uL (1.0-2.8); MCH 30.8 PG (29.0-34.0); MCV 96.2 FL (83-99); MEAN PLAT.VOLUME 11.5 uM^3 (9.5-12.4); NEUTROPHIL COUNT 9.8 K/uL (1.8-6.4); PLATELET COUNT 143 K/uL (156-360); RBC DIS.WIDTH-CV 12.5 % (11.8-14.6); RBC DIS.WIDTH-SD 43.9 % (39-53); RED BLOOD COUNT 3.18 M/uL (3.80-5.20); WHITE BLOOD COUNT 11.9 K/uL (4.1-10.2)
[2017-01-21 06:28] LABS: ANION GAP 7 MEQ/L (2-14); CHLORIDE 109 MEQ/L (99-109); GFR ESTIMATE (CALCULATED) > 59 mL/min/; GLUCOSE 115 mg/dL (70-99); POTASSIUM 3.5 MEQ/L (3.7-5.4); SAMPLE HEMOLYSIS CHECK 0; SAMPLE ICTERIC CHECK 0; SAMPLE LIPEMIA CHECK 0; SODIUM 143 MEQ/L (136-147); UREA NITROGEN (BUN) 13 mg/dL (9-23)
[2017-01-21 07:56] VITALS: BP 146/69
[2017-01-21 15:59] VITALS: BP 141/61
[2017-01-21 23:40] VITALS: BP 141/63
[2017-01-22 07:21] LABS: EOSINOPHIL COUNT 0.1 K/uL (0-0.3); HEMATOCRIT 28.5 % (36.0-46.0); IMMATURE GRANULOCYTE (%) 0.6 % (0.0-0.7); IMMATURE GRANULOCYTE COUNT 0.1 K/uL; INSTRUMENT ABS NEUTROPHIL CT 7.8 K/uL; LYMPHOCYTE COUNT 0.8 K/uL (1.0-2.8); MCHC 32.6 G/DL (30.0-36.0); MEAN PLAT.VOLUME 10.9 uM^3 (9.5-12.4); MONOCYTE (%) 7.7 % (3-12); MONOCYTE COUNT 0.7 K/uL (0-0.8); NEUTROPHIL (%) 82.3 % (45-76); NEUTROPHIL COUNT 7.8 K/uL (1.8-6.4); PLATELET COUNT 158 K/uL (156-360); RBC DIS.WIDTH-CV 12.6 % (11.8-14.6); RBC DIS.WIDTH-SD 43.6 % (39-53); WHITE BLOOD COUNT 9.4 K/uL (4.1-10.2)
[2017-01-22 07:47] LABS: ANION GAP 5 MEQ/L (2-14); CHLORIDE 108 MEQ/L (99-109); GFR ESTIMATE (CALCULATED) > 59 mL/min/; GLUCOSE 106 mg/dL (70-99); POTASSIUM 3.7 MEQ/L (3.7-5.4); SAMPLE HEMOLYSIS CHECK 0; SAMPLE ICTERIC CHECK 0; SAMPLE LIPEMIA CHECK 0; SODIUM 142 MEQ/L (136-147); UREA NITROGEN (BUN) 10 mg/dL (9-23)
[2017-01-22 08:11] VITALS: BP 163/76
[2017-01-22] MEDS ORDERED: LOPRESSOR25 MG PO (11:18)
[2017-01-22] MEDS ORDERED: POLYETHYLENE GL17 GM PO (11:21)
[2017-01-22] MEDS ORDERED: DOCUSATE SODIU1 EACH PO (11:23)
[2017-01-22] MEDS ORDERED: ENDOCET 5-3251 EACH PO (11:25)
[2017-01-22] MEDS ORDERED: ASPIRIN EC325 MG PO (11:41)
[2017-01-22] MEDS ORDERED: LOVENOX40 MG/0.4 SC (11:44)
[2017-01-22 11:58] VITALS: BP 179/79
== END 2017-01-22 12:41 | DRG 481 ==
LOC: EME 05:28 → EDOF 08:54 → 3EAST 08:54 → ENRESERV 08:55 → EDOF 09:00 → ENRESERV 09:21 → 3EAST 10:25
PROVIDERS: Hospitalist; Internal Medicine; Physician Assistant
PROC: 0QS706Z Reposition Left Upper Femur with Intramedullary Internal Fixation Device, Open Approach (ICD-10-PCS; principal; 2017-01-19)
DX: S72.142A Displaced intertrochanteric fracture of left femur, initial encounter for closed fracture (principal); E78.5 Hyperlipidemia, unspecified; E03.9 Hypothyroidism, unspecified; E46 Unspecified protein-calorie malnutrition; I10 Essential (primary) hypertension; Z68.26 Body mass index [BMI] 26.0-26.9, adult; W01.0XXA Fall on same level from slipping, tripping and stumbling without subsequent striking against object, initial encounter; K56.7 Ileus, unspecified; J45.909 Unspecified asthma, uncomplicated; F02.80 Dementia in other diseases classified elsewhere, unspecified severity, without behavioral disturbance, psychotic disturbance, mood disturbance, and anxiety; G30.9 Alzheimer's disease, unspecified; F01.50 Vascular dementia, unspecified severity, without behavioral disturbance, psychotic disturbance, mood disturbance, and anxiety; K21.9 Gastro-esophageal reflux disease without esophagitis; G89.29 Other chronic pain; E87.6 Hypokalemia; D72.829 Elevated white blood cell count, unspecified; I25.10 Atherosclerotic heart disease of native coronary artery without angina pectoris; F43.21 Adjustment disorder with depressed mood; Z86.73 Personal history of transient ischemic attack (TIA), and cerebral infarction without residual deficits; Z85.828 Personal history of other malignant neoplasm of skin; Z90.49 Acquired absence of other specified parts of digestive tract; Z79.899 Other long term (current) drug therapy
CPT/HCPCS: 71010; 73501; 73502; 73560; 74000; 76000; 80048; 80076; 81003; 84484; 85025; 85027; 85610; 86850; 86900; 86901; 92610 GN; 93005; 94010; 94799; 97530 GP; 99202; 99281; 99285; C1713; J0690; J1650; J2270; J2405; J3010; J3480; J7030